=== PATIENT | male | born 1960 | race Caucasian/White ===

== ENCOUNTER 2022-04-20 06:20 | Emergency (ER) | payer BC, OTHER ==
[~2022-04-20] VITALS: Ht 177.8 cm; Wt 88.5 kg
== END 2022-04-20 08:21 | disposition home or self-care (01) ==
LOC: ER 06:47
DX: R05.9 Cough, unspecified (principal); B34.9 Viral infection, unspecified; R09.89 Other specified symptoms and signs involving the circulatory and respiratory systems; R42 Dizziness and giddiness; Z20.822 Contact with and (suspected) exposure to COVID-19
CPT/HCPCS: 71045; 99283; U0002